=== PATIENT | male | born 1955 | race Caucasian/White ===

== ENCOUNTER → 2018-01-03 07:35 | Outpatient (CLI) | payer OTHER, SELFPAY ==
[2018-01-03 08:41] LABS: AST(SGOT) 18 U/L (15-37); Alanine Aminotransfer ALT/SGPT 29 U/L (16-61); Albumin, Serum 3.6 g/dL (3.2-5.0); Alkaline Phosphatase 82 U/L (45-117); Bilirubin, Direct 0.13 mg/dL (0.00-0.30); Cholesterol 168 mg/dL (200); Globulin 3.2 g/dL (2.2-4.2); High Density Lipoprotein 50 mg/dL; PSA,Total- Diagnostic 4.68 ng/mL (0.0-4.0); Protein, Total 6.8 g/dL (6.4-8.2); Triglycerides 96 mg/dL; Very Low Density Lipoprotein 19 mg/dL (5-40)
== END ==
PROVIDERS: Internal Medicine Cardiovascular Disease; Family Provider Family Medicine; PCP Family Medicine; Visit Provider Urology
DX: E78.5 Hyperlipidemia, unspecified (principal); R97.20 Elevated prostate specific antigen [PSA]; Z79.899 Other long term (current) drug therapy
CPT/HCPCS: 80061; 80076; 84153

== ENCOUNTER → 2018-09-08 06:30 | Outpatient (CLI) | payer OTHER, SELFPAY ==
[2018-09-08 07:56] LABS: AST(SGOT) 16 U/L (15-37); Alanine Aminotransfer ALT/SGPT 29 U/L (16-61); Albumin, Serum 3.7 g/dL (3.2-5.0); Alkaline Phosphatase 90 U/L (45-117); Bilirubin, Direct 0.16 mg/dL (0.00-0.30); Cholesterol 164 mg/dL (200); Globulin 3.1 g/dL (2.2-4.2); High Density Lipoprotein 49 mg/dL; PSA,Total- Diagnostic 4.86 ng/mL (0.0-4.0); Protein, Total 6.8 g/dL (6.4-8.2); Triglycerides 100 mg/dL; Very Low Density Lipoprotein 20 mg/dL (5-40)
== END ==
PROVIDERS: Internal Medicine Cardiovascular Disease; Family Provider Family Medicine; PCP Family Medicine; Referring Provider Urology; Visit Provider Urology
DX: E78.5 Hyperlipidemia, unspecified (principal); Z79.899 Other long term (current) drug therapy; R97.20 Elevated prostate specific antigen [PSA]
CPT/HCPCS: 36415; 80061; 80076; 84153

== ENCOUNTER → 2018-09-29 16:43 | Outpatient (CLI) | payer OTHER, SELFPAY ==
[2018-01-16 12:52] VITALS: BMI 27.5
[2018-09-29 18:03] LABS: Anion Gap 9 (5-15); BUN 20 mg/dL (7-18); BUN/Creat Ratio 16.5 RATIO (10-20); Calcium,Total 8.8 mg/dL (8.5-10.1); Chloride 105 mmol/L (98-107); Creatinine, Serum 1.21 mg/dL (0.70-1.30); EST Glomerular Filtration Rate 64 mL/min (>60); Est Glom Filt Rate - Afr Amer 77 mL/min (>60); Glucose 93 mg/dL (74-106); Potassium 4.2 mmol/L (3.5-5.1); Sodium Level 143 mmol/L (136-145)
--- OUTSIDE RECORDS SUMMARY | 2018-11-25 09:19 | XMS RPT_ITS ---
:1955 Author Organization OHIP Care Team Providers Name Role Phone Duy Dang Attending Unavailable Danny Peacock Primary Care Unavailable Duy Dang Referring Unavailable Jessee Chiu Consulting Unavailable Nhi Eubanks Attending Unavailable Jessee Chiu Attending Unavailable Danny Peacock Referring Unavailable Danny Peacock Primary Care Unavailable Duy Dang Attending Unavailable Danny Peacock Primary Care Unavailable Duy Dang Referring Unavailable Rossana, Jessee Consulting Unavailable Duy Dang Attending Unavailable Duy Dang Referring Unavailable Danny Peacock Primary Care Unavailable PROBLEMS PROBLEMS DATE TYPE CONDITION / CODE ATTENDING STATUS SOURCE 01/16/2018 Unknown Z95.1 - Presence of [place], [place] Active [place] aortocoronary Community bypass graft / Hospital Z95.1(ICD-10) Repository 01/16/2018 Unknown E78.5 - [place], [place] Active [place] Hyperlipidemia, Community unspecified / Hospital E78.5(ICD-10) Repository PROCEDURES PROCEDURES No Procedure Records FoundRESULTS RESULTS BASIC METABOLIC Collected: 09/29/2018 Status: F Source: [place]USAN PROFILE (BMP) 4:48 PM [facility] [place] TYPE CODE TESTS RESULT OUT OF RANGE REFERENCE UNITS LAB L501.0100 74-106 mg/dL Normal GLU 93 Result Comment: Please note revised GLUCOSE reference range effective 2017. LAB L501.1000 7-18 mg/dL High BUN 20 LAB L501.1100 0.70-1.30 mg/dL Normal CREAT,SERUM 1.21 Result Comment: The validity of the calculated GFR AND GFRAA in patients over 70 years has not been determined. Clinical correlation is essential. LAB L501.1110 >60 mL/min Normal EST GFR 64 Result Comment: Non- GFR Calc LAB L501.1115 >60 mL/min Normal EST GFR - AA 77 Result Comment: GFR Calc LAB L501.1300 10-20 RATIO Normal BUN/CRE 16.5 LAB L501.2200 8.5-10.1 mg/dL CA Normal 8.8 LAB L501.5300 136-145 mmol/L NA Normal 143 LAB L501.5600 3.5-5.1 mmol/L K Normal 4.2 LAB L501.5900 98-107 mmol/L CL Normal 105 LAB L501.6100 21.0-32.0 mmol/L Normal CO2 29.0 LAB L501.6200 5-15 Normal GAP 9 Performed By: #### L500.2500 #### [facility] [address] [place], [address] LIVER PROFILE Collected: 09/08/2018 Status: F Source: SUSAN 6:35 AM [facility] [place] Order Comment: PSAD FOR DR BOBY, LIVER N LIPID FOR DR CHIU TYPE CODE TESTS RESULT OUT OF RANGE REFERENCE UNITS LAB L501.1500 6.4-8.2 g/dL Normal T PROT 6.8 LAB L501.1800 3.2-5.0 g/dL Normal ALB 3.7 LAB L501.1950 2.2-4.2 g/dL Normal GLOB 3.1 LAB L501.4100 15-37 U/L Normal AST 16 LAB L501.4305 45-117 U/L Normal ALK P 90 LAB L501.4405 16-61 U/L Normal ALT 29 LAB L501.4600 0.20-1.00 mg/dL Normal T BILI 0.40 LAB L501.4700 0.00-0.30 mg/dL Normal D BILI 0.16 Performed By: #### L500.3400, L500.4100, L501.9940 #### [facility] [address] [place], [address] LIPID PROFILE Collected: 09/08/2018 Status: F Source: [place] 6:35 AM [facility] [place] [facility] Order Comment: PSAD FOR DR DAGN, LIVER N LIPID FOR DR CHIU TYPE CODE TESTS RESULT OUT OF RANGE REFERENCE UNITS LAB L501.4900 200 mg/dL Normal CHOL 164 Result Comment: <200 mg/dL Desirable 200-240 mg/dL Borderline >240 mg/dL High Risk LAB L501.5000 mg/dL Normal TRIG 100 Result Comment: The drugs N-Acetylcysteine and Metamizole may falsely depress this assay. Serum Triglycerides Reference Interval Normal <150 mg/dL Borderline high 150 - 199 mg/dL High 200 - 499 mg/dL Very High > or = 500 mg/dL LAB L501.6400 mg/dL Normal HDL 49 Result Comment: The drugs N-Acetylcysteine and Metamizole may falsely depress this assay. Reference Range HDL <40 mg/dL Low HDL Cholesterol HDL >or= 60 mg/dL High HDL Cholesterol LAB L501.6500 0-130 mg/dL Normal LDL 95 LAB L501.6600 5-40 mg/dL Normal VLDL 20 Performed By: #### L500.3400, L500.4100, L501.9940 #### [facility] [address] [place], [address] PSA,TOTAL- DIAGNOSTIC Collected: 09/08/2018 Status: F Source: SUSAN 6:35 AM [facility] [place] [facility] Order Comment: PSAD FOR DR DANG, LIVER N LIPID FOR DR CHIU TYPE CODE TESTS RESULT OUT OF REFERENCE UNITS RANGE LAB L501.9940 0.0-4.0 ng/mL PSA, High DIAGNOSTIC 4.86 Result Comment: This test was performed using the TPSA assay method for the [employer] chemistry system. Values obtained with different assay methods cannot be used interchangably. When changing PSA assays in the course of monitoring a patient, additional sequential testing should be carried out to confirm baseline values. Performed By: #### L500.3400, L500.4100, L501.9940 #### [facility] [address] [place], [address] CARDIOLOGY VISIT Observed: 01/16/2018 Status: F Source: SUSAN REPORT 1:21 PM [facility] [place] [facility] [address] [place] [address] OFFICE VISIT Date of Service: 01/16/18 MR#: [id number] Acct: [id number] Name: ADAM CARBONE Rep #: [id number] : 1955 Provider: Jessee Chiu MD Age/Sex: 62/M Location: [facility] Status: Signed HPI HPI Chief Complaint: Follow up Details: ADAM CARBONE, is a 62 M who presents to the office today for Follow-up visit. Is a gentleman with a history of coronary artery disease status post carotid bypass surgery over 10 years ago. He returns for routine follow-up visit he denies any chest pain or shortness breath or paroxysmal nocturnal dyspnea or pedal edema. He has had no neck arm or jaw discomfort suggest angina no dizziness no diaphoresis no near syncope or syncope. He underwent stress testing in August 2017 where he exercised to a high metabolic workload of 12 metabolic equivalents. He had no clinical angina noted and nuclear images demonstrated no evidence of ischemia. On his physical exam today demonstrates clear lung barnard regular rate and rhythm and no pedal edema. Intake Vital Signs01/16/18 Height 5 ft 8 in 01/16/18 Weight: 181 lb 01/16/18 Body Mass Index (BMI) 27.5 01/16/18 Blood Pressure 146/86 01/16/18 Respiratory Rate 16 01/16/18 Pulse Rate 60 Intake Visit Reasons: 1 Y FU (we moved from -) Allergies No Known Allergies Allergy (Verified 01/16/18 12:49) Medications Aspirin [Aspirin, Baby] 81 mg PO DAILY@0800 08/08/17 [History Confirmed 08/08/17] Atorvastatin Calcium [Lipitor] 80 mg PO QHS 08/08/17 [History Confirmed 08/08/17] Metoprolol Tartrate [Lopressor (beta radha)] 25 mg PO BID 08/08/17 [History Confirmed 08/08/17] Tamsulosin HCl [Flomax] 0.4 mg PO BID 08/08/17 [History Confirmed 08/08/17] aloe vera 5,000 mg capsule mg PO 01/16/18 [History Confirmed 01/16/18] lactobacillus rhamnosus R0011 20 billion cell capsule cell PO 01/16/18 [History Confirmed 01/16/18] PFSH Medical History Atherosclerosis of coronary artery of [place] heart without angina pectoris (Chronic) Hyperlipidemia (Chronic) BPH with urinary obstruction (Resolved) Surgical History H/O coronary artery bypass surgery (Chronic 03/26/07) Status post transurethral resection of prostate (Chronic 08/2017) Social History Smoking Status: Never smoker ROS Const Const: Negative for fatigue, weakness, difficulty sleeping, frequent falls, headache(s) or excessive sweating Eyes Eyes: Negative for loss of peripheral vision, transient loss of vision, blurry vision or double vision ENT ENT: Negative for headache(s), dizziness, Nosebleed/epistaxis or balance problems Cardio Chest Pain: No Edema: None Muscle aches with walking: None Resp Respiratory: Negative for SOB with activity, SOB at rest, SOB orthopnea\SOB lying down or paroxysmal nocturnal dyspnea GI GI: Negative nausea or heartburn : Negative for hematuria Musc Musc: Negative for muscle aches/ myalgia, muscle weakness, joint pain or balance problems Skin Skin: Negative non-healing lesions, unusual bruising or rash Neuro Neuro: Negative for weakness, frequent falls, blurry vision, headache(s), dizziness, lightheadedness, orthostatic symptoms or double vision Ron Hematologic/Lymphatic: Negative for easy bruising Endo Endo: Negative for fatigue, excessive sweating or increased thirst/drinking Psych Psych: Negative for anxiety or depression Allergy Allergy/Immunology: Negative for hives, Negative for rash Cardiology Exam Const Appearance: cooperative, healthy appearing, well developed, well groomed and no acute distress Nutritional Appearance: well nourished and average body habitus Orientation: alert, awake and oriented x3 Head Head: normal to inspection, normocephalic and atraumatic Ears: hearing grossly normal bilaterally and external ears normal Nose: external nose normal, nasal mucous membranes and turbinates normal, nares normal, septum normal, no nasal discharge Face and Sinus: face symmetric Mouth: oral mucosae normal, tongue normal, oropharynx normal and moist mucous membranes Teeth and gingiva: dentition normal Throat: posterior oropharynx normal, tonsils normal and uvula midline Eyes General: appearance normal, both eyes and all related structures Eyelids: eyelids normal Conjunctivae: conjunctivae normal Pupils: PERRL, normal by confrontation and accommodation normal EOM: EOM intact bilaterally Neck Neck: normal visual inspection, trachea midline and no JVD JVD: +5 Carotids: normal carotid upstroke and bounding pulses Chest Chest inspection: normal inspection of the chest, symmetric chest movement and normal respiratory effort Auscultation: Bilateral: Clear to Auscultation Cardio Palpation: normal PMI Rate: regular rate Rhythm: regular rhythm Heart sounds: S1 normal, S2 normal and normal, physiologic split S2; negative rub, gallop or murmur GI GI: normal to inspection, soft, no hepatosplenomegaly and bowel sounds present Neuro General: alert, awake, oriented x3, no focal sensory deficit, gait normal and moves all extremities Skin Skin: no rashes or lesions noted Extremities Pulses: Normal: Right Femoral Pulse, Left Femoral Pulse, Right Dorsalis Pedis Pulse, Left Dorsalis Pedis Pulse, Right Posterior Tibial Pulse, Left Posterior Tibial Pulse, Right Radial Pulse, Left Radial Pulse Lower Extremity Edema: None: Bilateral Musculoskel Musculoskeletal: No joint tenderness Psych Psychological: normal affect Assessment AND Plan 1. H/O coronary artery bypass surgery Z95.1 CABG x 3 NARANJO-LAD, SVG-OM1, SVG-OM2 @ [facility] Plan He is status post coronary artery bypass surgery as noted above his stress test was reassuring at this time I would not suggest that we make any change in his medications remain on his aspirin high-intensity statin as well as his beta-radha. 2. Hyperlipidemia E78.5 Plan He had a lipid profile performed which demonstrated a total cholesterol of 168 an LDL of 99 HDL of 50. He will continue with his risk factor modification and will continue to see him on a yearly basis. I am quite pleased with his current results. 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) Coding Level of Care Code Off vis,est,level 3 Diagnoses H/O coronary artery bypass surgery Z95.1 Hyperlipidemia E78.5 Coding Level of Care Code Off vis,est,level 3 Diagnoses H/O coronary artery bypass surgery Z95.1 Hyperlipidemia E78.5 01/16/18 1321 <Electronically signed by Jessee Chiu MD> Date Jessee Chiu MD Cosigner Signature: Date (if applicable) CC: Danny Peacock MD LIVER PROFILE Collected: 01/03/2018 Status: F Source: SUSAN 7:45 AM [facility] [place] [facility] Order Comment: Order Date: 07/10/17 Order Info: 0788-1 - *Hepatic Function Panel DR DANG ORDERED PSAD ONLY Order Info: [id number] - *Lipid Profile CC PCP Comments: 12 hours fasting, may have water. TYPE CODE TESTS RESULT OUT OF RANGE REFERENCE UNITS LAB L501.1500 6.4-8.2 g/dL Normal T PROT 6.8 LAB L501.1800 3.2-5.0 g/dL Normal ALB 3.6 LAB L501.1950 2.2-4.2 g/dL Normal GLOB 3.2 LAB L501.4100 15-37 U/L Normal AST 18 LAB L501.4305 45-117 U/L Normal ALK P 82 LAB L501.4405 16-61 U/L Normal ALT 29 Result Comment: Please note revised ALT reference range effective 2017. LAB L501.4600 0.20-1.00 mg/dL Normal T BILI 0.50 LAB L501.4700 0.00-0.30 mg/dL Normal D BILI 0.13 Performed By: #### L500.3400 #### [facility] [address] [place], [address] LIPID PROFILE Collected: 01/03/2018 Status: F Source: [place] 7:45 AM [facility] [place] [facility] Order Comment: Order Date: 07/10/17 Order Info: [id number] - *Hepatic Function Panel DR DANG ORDERED PSAD ONLY Order Info: [id number] - *Lipid Profile CC PCP Comments: 12 hours fasting, may have water. TYPE CODE TESTS RESULT OUT OF RANGE REFERENCE UNITS LAB L501.4900 200 mg/dL Normal CHOL 168 Result Comment: <200 mg/dL Desirable 200-240 mg/dL Borderline >240 mg/dL High Risk LAB L501.5000 mg/dL Normal TRIG 96 Result Comment: The drugs N-Acetylcysteine and Metamizole may falsely depress this assay. Serum Triglycerides Reference Interval Normal <150 mg/dL Borderline high 150 - 199 mg/dL High 200 - 499 mg/dL Very High > or = 500 mg/dL LAB L501.6400 mg/dL Normal HDL 50 Result Comment: The drugs N-Acetylcysteine and Metamizole may falsely depress this assay. Reference Range HDL <40 mg/dL Low HDL Cholesterol HDL >or= 60 mg/dL High HDL Cholesterol LAB L501.6500 0-130 mg/dL Normal LDL 99 LAB L501.6600 5-40 mg/dL Normal VLDL 19 Performed By: #### L500.4100 #### [facility] [address] [place], [address] PSA,TOTAL- DIAGNOSTIC Collected: 01/03/2018 Status: F Source: [place] 7:45 AM [facility] [place] [facility] Order Comment: Order Date: 07/10/17 Order Info: 0788-1 - *Hepatic Function Panel DR DANG ORDERED PSAD ONLY Order Info: [id number] - *Lipid Profile CC PCP Comments: 12 hours fasting, may have water. TYPE CODE TESTS RESULT OUT OF REFERENCE UNITS RANGE LAB L501.9940 0.0-4.0 ng/mL PSA, High DIAGNOSTIC 4.68 Result Comment: This test was performed using the TPSA assay method for the [employer] chemistry system. Values obtained with different assay methods cannot be used interchangably. When changing PSA assays in the course of monitoring a patient, additional sequential testing should be carried out to confirm baseline values. Performed By: #### L501.9940 #### [facility] [address] [place], [address] ALLERGIES ALLERGIES DATE TYPE / CODE NAME / CODE REACTION SEVERITY SOURCE 01/16/[address] [facility] Allergy/4160 Allergies/F00 Hospital 45090(SNOMED 5758115(RXNOR Repository CT) M) ENCOUNTERS ENCOUNTERS ADMIT/DISCHARGE ACCOUNT ADMITTING ENCOUNTER LOCATION SOURCE NUMBER CLASS 09/29/2018 [id number] Ambulatory [address] ing:LAB Repository 09/08/2018 [id number] Ambulatory [place] 3 [facility] ing:LAB.FUTUR Repository E 01/16/2018/ [id number] Ambulatory BMSBuilding:B [place] [address] Repository 01/16/2018 [id number] Ambulatory BMSBuilding:B [place] [address] Repository 01/03/2018 [id number] Ambulatory [place] 4 [facility] ing:LAB.FUTUR Repository E PAYERS PAYERS ENCOUNTER GUARANTOR PAYER SUBSCRIBER SOURCE 09/29/2018 ADAM A Primary ADAM A [place] [id number] SARTHAK Insurance:MEDICAL BURNISONDOB: [facility] [id number] [address]Nuw: [phone]) Number: Repository [phone] (HP) [id number] Date:[id number] [address]HV: 09/29/2018 Secondary NOT GIVENUNK [place] Insurance:SELF PAY [facility] Number: Effective Repository Date:2018-09-29 09/08/2018 ADAM A Primary ADAM A [place] [id number] SARTHAK Insurance:MEDICAL BURNISONDOB: [facility] [id number] [id number]: [phone]) Number: Repository [phone] () [id number] Date:[id number] [address]WP: 09/08/2018 Secondary NOT GIVENUNK [place] Insurance:SELF PAY [facility] Number: Effective Repository Date:2018-08-18 01/16/2018 ADAM A Primary ADAM A [place] [id number] [place] Insurance:MEDICAL BURNISONDOB: [facility] [id number] [place] [id number]: [phone]) Number: Repository [phone] () [id number] Date:[id number] [id number]: 01/16/2018 Secondary NOT GIVENUNK [place] Insurance:SELF PAY [facility] Number: Effective Repository Date:2017-12-05 01/16/2018 ADAM A Primary ADAM A [place] [id number] [place] Insurance:MEDICAL BURNISONDOB: [facility] [id number] [id number]: (330) Number: Repository [phone] () [id number] Date:[id number] [address]DC: 01/16/2018 Secondary NOT GIVENUNK [place] Insurance:SELF PAY [facility] Number: Effective Repository Date:2018-01-16 01/03/2018 ADAM A Primary ADAM A [place] [id number] [place] Insurance:MEDICAL BURNISONDOB: [facility] [id number] Hospital [address]Zck: (330) Number: Repository [phone] () [id number] Date:[id number] [address]VY: 01/03/2018 Secondary NOT GIVENUNK [place] Insurance:SELF PAY [facility] Number: Effective Repository Date:2017-12-24
== END ==
PROVIDERS: Family Provider Family Medicine; PCP Family Medicine; Referring Provider Urology; Visit Provider Urology
DX: N13.30 Unspecified hydronephrosis (principal)
CPT/HCPCS: 36415; 80048

== ENCOUNTER → 2019-09-10 06:36 | Outpatient (CLI) | payer OTHER, SELFPAY ==
[2019-01-12 14:13] VITALS: BMI 27.3
[2019-09-10 08:15] LABS: AST(SGOT) 20 U/L (15-37); Alanine Aminotransfer ALT/SGPT 26 U/L (16-61); Albumin, Serum 3.8 g/dL (3.2-5.0); Alkaline Phosphatase 89 U/L (45-117); Bilirubin, Direct 0.17 mg/dL (0.00-0.30); Cholesterol 175 mg/dL (200); Globulin 3.2 g/dL (2.2-4.2); High Density Lipoprotein 61 mg/dL; Triglycerides 108 mg/dL; Very Low Density Lipoprotein 22 mg/dL (5-40)
== END ==
PROVIDERS: Urology; Family Provider Family Medicine; PCP Family Medicine; Referring Provider Internal Medicine Cardiovascular Disease; Visit Provider Internal Medicine Cardiovascular Disease
DX: E78.5 Hyperlipidemia, unspecified (principal); Z12.5 Encounter for screening for malignant neoplasm of prostate
CPT/HCPCS: 36415; 80061; 80076; 84153; G0103

== ENCOUNTER → 2020-10-13 08:27 | Outpatient (CLI) | payer OTHER, SELFPAY ==
[2020-10-12 13:02] VITALS: BMI 25.7
[2020-10-13 09:58] LABS: AST(SGOT) 18 U/L (15-37); Alanine Aminotransfer ALT/SGPT 28 U/L (16-61); Albumin, Serum 3.5 g/dL (3.2-5.0); Alkaline Phosphatase 89 U/L (45-117); Bilirubin, Direct 0.18 mg/dL (0.00-0.30); Cholesterol 142 mg/dL (200); Globulin 3.4 g/dL (2.2-4.2); High Density Lipoprotein 44 mg/dL; Protein, Total 6.9 g/dL (6.4-8.2); Triglycerides 95 mg/dL; Very Low Density Lipoprotein 19 mg/dL (5-40)
== END ==
PROVIDERS: PCP Family Medicine; Referring Provider Internal Medicine Cardiovascular Disease; Visit Provider Internal Medicine Cardiovascular Disease
DX: E78.00 Pure hypercholesterolemia, unspecified (principal)
CPT/HCPCS: 36415; 80061; 80076

== ENCOUNTER → 2021-10-04 08:20 | Outpatient (CLI) | payer MEDICARE, SELFPAY ==
[2021-10-04 10:02] LABS: AST(SGOT) 19 U/L (15-37); Alanine Aminotransfer ALT/SGPT 29 U/L (16-61); Albumin, Serum 3.7 g/dL (3.2-5.0); Alkaline Phosphatase 96 U/L (45-117); Bilirubin, Direct 0.26 mg/dL (0.00-0.30); Cholesterol 168 mg/dL (200); Globulin 3.3 g/dL (2.2-4.2); High Density Lipoprotein 61 mg/dL; Triglycerides 71 mg/dL; Very Low Density Lipoprotein 14 mg/dL (5-40)
== END ==
PROVIDERS: PCP Family Medicine; Referring Provider Internal Medicine Cardiovascular Disease; Visit Provider Internal Medicine Cardiovascular Disease
DX: E78.00 Pure hypercholesterolemia, unspecified (principal); E78.5 Hyperlipidemia, unspecified
CPT/HCPCS: 36415; 80061; 80076

== ENCOUNTER → 2021-10-23 12:57 | Outpatient (CLI) | payer MEDICARE, SELFPAY ==
--- NOTE | 2021-10-23 12:54 | STE_ITS ---
Reason For Study: CAD, S/P CABG Stress Results Protocol: Stress Echocardiogram-Christofer Maximum Predicted HR: 152 bpm Target HR: 129 bpm % Maximum Predicted HR: 102 % DurationHeart Rate Stage (mm:ss) (bpm) BP Comment baseline 68 164/90Patient denies chest pain Stage 1 3:00 106 168/94Patient denies chest pain Stage 2 3:00 126 176/94Patient denies chest pain Stage 3 3:00 150 178/96Patient denies chest pain. Mild shortness of breath. Stage 4 1:00 155 / Patient denies chest pain. Moderate shortness of breath. Recovery 94 160/90Patient denies chest pain Stress Duration: 10:00 mm:ss Maximum Stress HR: 155 bpm Baseline Echocardiogram Findings Stress Echo Wall motion Data Resting WM Intermediate WM Stress WM ECHO/Stress Test Echo w/o Contrast Interpretation Summary Exercise stress echo. 66-year-old man with a history of coronary disease status post coronary bypass surgery. Stress protocol: Resting EKG demonstrates sinus rhythm with a rate of 68 bpm. Resting blood pres sure is 164/90 mmHg. The patient exercised according to regular Christofer protocol for a total duration of 10 minutes. Patient completed 1 minute into stage IV of the Christofer protocol. The maximum hea rt rate attained was 155 bpm which was 101% of maximum predicted heart rate the maximum workload was 13.3 metabolic equivalents. At rest there were no ST or T wave changes noted suggest ischemia at peak exercise upsloping ST changes were noted of approximately 1 mm in lead III and 0.85 mm n oted in lead aVF and 0.45 mm noted in lead II and V5 and V6. The above did not meet the criteria for ischemia or upsloping. The patient experienced mild shortness of breath. The peak blood pre ssure was 194/100 mmHg which was a hypertensive response to exercise with a peak rate pressure pr oduct of 26,700. Stress echocardiogram. The resting echocardiogram demonstrated reduced left ventricular systolic funct ion estimated at approximately 45%. There is moderate hypokinesis noted of the anterior wall ext ending to the apex. During stress there is reduction in low ventricular cavity size and thickening of all gonzales except for a very small portion of the basal to mid anteroseptal wall. The peak ejecti on fraction is estimated to be approximately 60%. The above is suggestive of her previous ante rior and anteroseptal hypokinetic zone with improved function. No obvious ischemia is seen except for the basal anteroseptal wall. Conclusion: Exercise stress echocardiogram with no EKG criteria for ischemia at a high work load. Baseline resting wall motion abnormality noted involving the anterior wall with significant improvement with the stress except for a small portion of the basal anterosepta l wall. The above is suggestive of minimal basal anteroseptal ischemia. The significant portion of the anterior and anteroseptal wall are well perfused. Ordering Physician: Jessee Tracy Referring Physician: Jessee Tracy Performed By: Marissa Felton, RDCS, RVT
== END ==
PROVIDERS: PCP Family Medicine; Referring Provider Internal Medicine Cardiovascular Disease; Visit Provider Internal Medicine Cardiovascular Disease
DX: I25.10 Atherosclerotic heart disease of native coronary artery without angina pectoris (principal); Z95.1 Presence of aortocoronary bypass graft
CPT/HCPCS: 93017; 93350

== ENCOUNTER → 2022-03-05 | Outpatient (CLI) | payer MEDICARE, SELFPAY ==
[2022-03-05 15:32] LABS: PSA,Total - Annual Screen 5.93 ng/mL (0.00-4.00)
== END | disposition home or self-care (01) ==
LOC: LAB 14:12
PROVIDERS: PCP Family Medicine; Visit Provider Registered Nurse
DX: Z12.5 Encounter for screening for malignant neoplasm of prostate (principal)
CPT/HCPCS: 36415; 84153; G0103

== ENCOUNTER → 2022-10-29 | Outpatient (CLI) | payer MEDICARE, SELFPAY ==
[2022-10-29 10:20] LABS: AST(SGOT) 33 U/L (15-37); Alanine Aminotransfer ALT/SGPT 66 U/L (16-61); Albumin, Serum 3.6 g/dL (3.2-5.0); Alkaline Phosphatase 112 U/L (45-117); Anion Gap 3 (5-15); BUN 17 mg/dL (7-18); BUN/Creat Ratio 14.4 RATIO (10-20); Bilirubin, Direct 0.13 mg/dL (0.00-0.30); Calcium,Total 8.3 mg/dL (8.5-10.1); Chloride 110 mmol/L (98-107); Cholesterol 158 mg/dL (200); Creatinine, Serum 1.18 mg/dL (0.70-1.30); EST Glomerular Filtration Rate 65 mL/min (>60); Est Glom Filt Rate - Afr Amer 79 mL/min (>60); Globulin 3.1 g/dL (2.2-4.2); Glucose 96 mg/dL (74-106); High Density Lipoprotein 50 mg/dL; Protein, Total 6.7 g/dL (6.4-8.2); Sodium Level 141 mmol/L (136-145); Triglycerides 120 mg/dL; Very Low Density Lipoprotein 24 mg/dL (5-40)
== END | disposition home or self-care (01) ==
LOC: LAB 08:33
PROVIDERS: PCP Family Medicine; Referring Provider Internal Medicine Cardiovascular Disease; Visit Provider Internal Medicine Cardiovascular Disease
DX: E78.00 Pure hypercholesterolemia, unspecified (principal); I25.10 Atherosclerotic heart disease of native coronary artery without angina pectoris; Z95.1 Presence of aortocoronary bypass graft
CPT/HCPCS: 36415; 80048; 80061; 80076

== ENCOUNTER → 2023-03-25 | Outpatient (CLI) | payer MEDICARE, SELFPAY ==
[2023-03-25 12:45] LABS: PSA,Total- Diagnostic 6.44 ng/mL (0.0-4.0)
== END | disposition home or self-care (01) ==
LOC: LAB 10:12
PROVIDERS: PCP Family Medicine; Referring Provider Urology; Visit Provider Urology
DX: R97.20 Elevated prostate specific antigen [PSA] (principal)
CPT/HCPCS: 36415; 84153

== ENCOUNTER → 2024-02-02 | Outpatient (CLI) | payer MEDICARE, SELFPAY ==
[2024-02-02 09:56] LABS: AST(SGOT) 18 U/L (15-37); Alanine Aminotransfer ALT/SGPT 34 U/L (16-61); Albumin, Serum 3.6 g/dL (3.2-5.0); Alkaline Phosphatase 96 U/L (45-117); Bilirubin, Direct 0.14 mg/dL (0.00-0.30); Cholesterol 166 mg/dL (200); High Density Lipoprotein 57 mg/dL; PSA,Total- Diagnostic 6.07 ng/mL (0.0-4.0); Protein, Total 6.6 g/dL (6.4-8.2); Triglycerides 77 mg/dL; Very Low Density Lipoprotein 15 mg/dL (5-40)
== END | disposition home or self-care (01) ==
LOC: LAB 08:12
PROVIDERS: Internal Medicine Cardiovascular Disease; PCP Family Medicine; Referring Provider Urology; Visit Provider Urology
DX: R97.20 Elevated prostate specific antigen [PSA] (principal); E78.00 Pure hypercholesterolemia, unspecified; I25.10 Atherosclerotic heart disease of native coronary artery without angina pectoris; Z95.1 Presence of aortocoronary bypass graft
CPT/HCPCS: 36415; 80061; 80076; 84153

== ENCOUNTER → 2025-03-07 | Outpatient (CLI) | payer MEDICARE, SELFPAY ==
[2025-03-07 10:12] LABS: PSA,Total- Diagnostic 7.52 ng/mL (0.00-4.00)
[2025-03-07 10:29] LABS: AST(SGOT) 20 U/L (<=37); Alanine Aminotransfer ALT/SGPT 17 U/L (<=46); Albumin, Serum 4.2 g/dL (3.4-4.8); Alkaline Phosphatase 97 U/L (40-129); Bilirubin, Direct 0.34 mg/dL (0.00-0.30); Cholesterol 166 mg/dL (<=200); Globulin 2.6 g/dL (2.2-4.2); High Density Lipoprotein 56 mg/dL; Low Density Lipoprotein Calc. 93 mg/dL; Protein, Total 6.8 g/dL (5.9-8.4); Total Bilirubin 0.84 mg/dL (0.00-1.30); Triglycerides 87 mg/dL; Very Low Density Lipoprotein 17 mg/dL (5-40); cholesterol:hdl ratio screen 2.99
== END | disposition home or self-care (01) ==
PROVIDERS: Urology; PCP Family Medicine; Referring Provider Internal Medicine Cardiovascular Disease; Visit Provider Internal Medicine Cardiovascular Disease
DX: N40.1 Benign prostatic hyperplasia with lower urinary tract symptoms (principal); E78.00 Pure hypercholesterolemia, unspecified
CPT/HCPCS: 36415; 80061; 80076; 84153